=== PATIENT | female | born 1940 | race Caucasian/White ===

== ENCOUNTER 2017-05-12 12:13 | Observation (INO) | payer MEDICARE ==
[~2017-05-12] VITALS: Ht 160 cm; Wt 87.4 kg
[2017-05-12 12:59] LABS: BASOPHILS % (AUTO) 0.4 % (0.0-5.0); EOSINOPHILS % (AUTO) 1.7 % (0.0-8.0); HEMATOCRIT 33.5 % (36-48); LYMPHOCYTES % (AUTO) 17.6 % (21.0-51.0); MEAN CORPUSCULAR HEMOGLOBIN 32.5 pg (27.0-33.0); MEAN CORPUSCULAR HGB CONC 34.5 g/dL (32.0-36.0); MEAN CORPUSCULAR VOLUME 94.1 fL (79-99); MONOCYTES % (AUTO) 8.3 % (3.0-13.0); NUCLEATED RED BLOOD CELLS 0.1 % (0.0-0.19); PLATELET COUNT (AUTO) 211 K/uL (130-400); RED BLOOD CELL COUNT(AUTO) 3.56 MIL/uL (4.00-5.50); RED CELL DISTRIBUTION WIDTH 12.7 % (11.0-15.5)
[2017-05-12 13:26] LABS: CREATININE 1.3 mg/dL (0.5-1.5); POTASSIUM 3.8 mmol/L (3.5-5.1)
[2017-05-12 13:32] LABS: ALBUMIN 3.9 g/dL (3.5-5.0); BILIRUBIN,TOTAL 0.3 mg/dL (0.2-1.0)
[2017-05-12 15:05] LABS: APPEARANCE,URINE Clear (CLEAR); BILIRUBIN,URINE Negative (NEGATIVE); COLOR,URINE Yellow (YELLOW); GLUCOSE, URINE (UA) Negative (NEGATIVE); KETONES,URINE Negative (NEGATIVE); LEUKOCYTE ESTERASE ,URINE Moderate (NEGATIVE); NITRATE,URINE Negative (NEGATIVE); OCCULT BLOOD,URINE Negative (NEGATIVE); PROTEIN,URINE Negative (NEGATIVE); UROBILINOGEN,URINE 0.2 mg/dL (0.2-1.0)
[2017-05-12 16:10] LABS: BACTERIA,URINE Rare /HPF (None Seen); RBC,URINE 0-1 /HPF (0-1)
[2017-05-12 16:11] LABS: HYALINE CASTS, URINE 0-1 /LPF (0-1 /LPF); SQUAMOUS EPITHELIAL CELL,UR Rare /LPF (0-2)
[2017-05-12] MEDS ORDERED: ONDANSETRON HCL 4 MG/2 ML VIAL ONE (16:40)
[2017-05-12] MEDS ORDERED: MORPHINE SULFATE 2 MG/ML 1ML SYG ONE (16:41)
[2017-05-12 16:59] LABS: ABG BASE EXCESS -2.2 mmol/L (-2.0-3.0); ABG HCO3 22.1 mmol/L (21.0-28.0); ABG OXYGEN SATURATION 94.1 % (95.0-99.0); ABG PCO2 37 mmHg (32-45)
[2017-05-12] MEDS ORDERED: GADOBENATE DIMEGLUMINE 10 ML IV ONE (17:22)
[2017-05-12] MEDS ORDERED: SODIUM CHLORIDE 0.9% 1000ML 1,000 ML IV ONE (18:51)
[2017-05-12 21:30] VITALS: BP 156/74
[2017-05-12] MEDS ORDERED: LEVOFLOXACIN 500 MG/D5W 100 ML 100 ML ONE (23:06)
[2017-05-12 23:15] VITALS: BP 142/71
[2017-05-12] MEDS ORDERED: IPRATROPIUM/ALBUTEROL SULFATE 3 ML SOLUTION IH ONE (23:28)
[2017-05-12] MEDS ORDERED: SODIUM CHLORIDE 0.9% 1000ML 1,000 ML IV SCH (23:30)
[2017-05-12] MEDS ORDERED: LEVOFLOXACIN 500 MG/D5W 100 ML 100 ML IV SCH (23:30)
[2017-05-13] MEDS ORDERED: ZOLPIDEM TARTRATE 5 MG TAB PO PRN (00:15)
[2017-05-13] MEDS ORDERED: LIDOCAINE HCL-MPF 1% 2ML VIAL IVP PRN (02:15)
[2017-05-13] MEDS ORDERED: ONDANSETRON HCL 4 MG/2 ML VIAL IVP PRN (02:15)
[2017-05-13] MEDS ORDERED: CLONIDINE HCL 0.1 MG TABLET PO PRN (02:15)
[2017-05-13] MEDS ORDERED: POTASSIUM CHLORIDE 20 MEQ ERTAB PO PRN (02:15)
[2017-05-13] MEDS ORDERED: ACETAMINOPHEN 325 MG TAB PO PRN (02:15)
[2017-05-13] MEDS ORDERED: LACTULOSE 20 GM/30 ML UDCUP PO PRN (02:15)
[2017-05-13] MEDS ORDERED: POTASSIUM CHLORIDE 20MEQ/100ML 100 ML IV PRN (02:15)
[2017-05-13] MEDS ORDERED: POTASSIUM CHLORIDE 10% ELIXIR 20 MEQ/15 ML UDCUP PO PRN (02:15)
[2017-05-13] MEDS ORDERED: HYDRALAZINE HCL 20 MG/ML VIAL IV PRN (02:15)
[2017-05-13] MEDS ORDERED: MORPHINE SULFATE 2 MG/ML 1ML SYG IVP PRN ×2 (02:15)
[2017-05-13 03:40] VITALS: BP 143/70
[2017-05-13 05:07] LABS: HEMATOCRIT 30.3 % (36-48); MEAN CORPUSCULAR HEMOGLOBIN 32.2 pg (27.0-33.0); MEAN CORPUSCULAR HGB CONC 34.1 g/dL (32.0-36.0); MEAN CORPUSCULAR VOLUME 94.5 fL (79-99); PLATELET COUNT (AUTO) 188 K/uL (130-400); RED BLOOD CELL COUNT(AUTO) 3.21 MIL/uL (4.00-5.50); RED CELL DISTRIBUTION WIDTH 12.7 % (11.0-15.5)
[2017-05-13 05:29] LABS: CREATININE 0.9 mg/dL (0.5-1.5); POTASSIUM 3.8 mmol/L (3.5-5.1)
[2017-05-13 07:00] VITALS: BP 148/98
[2017-05-13] MEDS ORDERED: FAMOTIDINE 20MG TAB 20 MG TAB PO SCH (09:00)
[2017-05-13] MEDS ORDERED: TRAMADOL HCL 50 MG TABLET PO PRN (10:45)
[2017-05-13] MEDS ORDERED: IPRATROPIUM/ALBUTEROL SULFATE 3 ML SOLUTION IH SCH (12:00)
[2017-05-13 12:41] VITALS: BP 166/66
[2017-05-13] MEDS ORDERED: PARO40TA72 PO (12:48)
[2017-05-13] MEDS ORDERED: TEMA30CA PO (12:48)
[2017-05-13] MEDS ORDERED: OMEP40CA37 PO (12:48)
[2017-05-13] MEDS ORDERED: PREG150C PO (12:48)
[2017-05-13] MEDS ORDERED: MYCO500T5 PO (12:48)
[2017-05-13] MEDS ORDERED: FURO20TA4 PO (12:48)
[2017-05-13] MEDS ORDERED: OXCA300T PO (12:48)
[2017-05-13] MEDS ORDERED: CIPR-245 PO (13:16)
[2017-05-13 16:00] VITALS: BP 137/68
[2017-05-14] MEDS ORDERED: LEVOFLOXACIN 500 MG/D5W 100 ML 100 ML IV SCH (22:00)
== END 2017-05-13 18:10 | disposition home or self-care (01) ==
LOC: EDH 12:13 → EDHIP 17:20 → 3BH 21:11
PROVIDERS: ADMIT Internal Medicine; ATTEND Internal Medicine
DX: M48.56XA Collapsed vertebra, not elsewhere classified, lumbar region, initial encounter for fracture (principal); R09.02 Hypoxemia; G47.33 Obstructive sleep apnea (adult) (pediatric); M19.90 Unspecified osteoarthritis, unspecified site; I10 Essential (primary) hypertension; N39.0 Urinary tract infection, site not specified; R60.9 Edema, unspecified; Z87.891 Personal history of nicotine dependence
CPT/HCPCS: 36415 ×2; 36600; 71045; 72131; 72158; 78580; 80048; 80053; 81001; 82550; 82803; 83880; 84484; 85025; 85027; 85378; 93005; 93970; 94640 ×2; 94664; 96361; 96374; 96375; 97161; 99285; A9540; A9577; G0378 ×25; G8978; G8979; G8980; G8981; G8982; G8983; J0360; J1956; J7030; J2405

== ENCOUNTER 2017-05-17 14:51 | Emergency (ER) | payer MEDICARE ==
[~2017-05-17 14:51] MED LIST: CIPR-245 PO; FURO20TA4 PO; MYCO500T5 PO; OMEP40CA37 PO; OXCA300T PO; PARO40TA72 PO; PREG150C PO; TEMA30CA PO
[2017-05-17 17:47] LABS: BASOPHILS % (AUTO) 0.4 % (0.0-5.0); HEMATOCRIT 32.3 % (36-48); LYMPHOCYTES % (AUTO) 24.8 % (21.0-51.0); MEAN CORPUSCULAR HEMOGLOBIN 32.3 pg (27.0-33.0); MEAN CORPUSCULAR HGB CONC 34.2 g/dL (32.0-36.0); MEAN CORPUSCULAR VOLUME 94.5 fL (79-99); MONOCYTES % (AUTO) 9.2 % (3.0-13.0); NEUTROPHILS % (AUTO) 64.6 % (40.0-77.0); PLATELET COUNT (AUTO) 269 K/uL (130-400); RED BLOOD CELL COUNT(AUTO) 3.42 MIL/uL (4.00-5.50); RED CELL DISTRIBUTION WIDTH 12.5 % (11.0-15.5)
[2017-05-17 18:00] LABS: PARTIAL THROMBOPLASTIN TIME 27.5 SEC (26.3-35.5); PROTHROMBIN TIME 10.5 SEC (9.6-11.6)
[2017-05-17 18:08] LABS: ALBUMIN 3.6 g/dL (3.5-5.0); BILIRUBIN,TOTAL 0.2 mg/dL (0.2-1.0); TOTAL PROTEIN, SERUM 7.7 g/dL (6.0-8.3)
[2017-05-17] MEDS ORDERED: GADOBENATE DIMEGLUMINE 20 ML IV ONE (20:51)
[2017-05-18] MEDS ORDERED: ASPIRIN 325 MG TABLET ONE (01:25)
== END 2017-05-18 02:40 | disposition short-term general hospital (02) ==
LOC: EDH 14:51
DX: I63.8 Other cerebral infarction (principal); I10 Essential (primary) hypertension; M19.90 Unspecified osteoarthritis, unspecified site; Z88.0 Allergy status to penicillin
CPT/HCPCS: 36415; 70450; 70544; 70549; 70551; 80053; 82550; 84484; 85025; 85610; 85730; 93005; 99285; A9577

== ENCOUNTER 2019-08-23 10:39 | Inpatient (IN) | payer MEDICARE ==
[~2019-08-23] VITALS: Ht 157.5 cm; Wt 76.9 kg
[2019-08-23] VITALS (26 sets, daily range): BP systolic 99–173; BP diastolic 54–101
[~2019-08-23 10:39] MED LIST changes: +OMEP40CA13 PO; -OMEP40CA37 PO; -OXCA300T PO; +OXCA300T28 PO
[2019-08-23] MEDS ORDERED: ONDANSETRON HCL 4 MG/2 ML VIAL ONE (11:11)
[2019-08-23] MEDS ORDERED: MORPHINE SULFATE 4 MG/1ML SYG ONE ×2 (11:12→13:46)
[2019-08-23 11:21] LABS: CREATININE 1.2 mg/dL (0.5-1.5)
[2019-08-23 11:23] LABS: BASOPHILS % (AUTO) 0.1 % (0.0-5.0); EOSINOPHILS % (AUTO) 0.1 % (0.0-8.0); HEMATOCRIT 31.7 % (36-48); LYMPHOCYTES % (AUTO) 8.6 % (21.0-51.0); MEAN CORPUSCULAR HEMOGLOBIN 32.6 pg (27.0-33.0); MEAN CORPUSCULAR HGB CONC 34.1 g/dL (32.0-36.0); MEAN CORPUSCULAR VOLUME 95.8 fL (79-99); MONOCYTES % (AUTO) 7.9 % (3.0-13.0); NEUTROPHILS % (AUTO) 82.9 % (40.0-77.0); PLATELET COUNT (AUTO) 242 K/uL (130-400); RED BLOOD CELL COUNT(AUTO) 3.31 MIL/uL (4.00-5.50); WHITE BLOOD COUNT (AUTO) 7.8 K/uL (4.8-10.8)
[2019-08-23 11:25] LABS: ALBUMIN 3.6 g/dL (3.5-5.0); BILIRUBIN,DIRECT 0.1 mg/dL (0.0-0.3); BILIRUBIN,TOTAL 0.3 mg/dL (0.2-1.0); TOTAL PROTEIN, SERUM 7.8 g/dL (6.0-8.3)
[2019-08-23 11:26] LABS: APPEARANCE,URINE Clear (CLEAR); BILIRUBIN,URINE Negative (NEGATIVE); COLOR,URINE Yellow (YELLOW); GLUCOSE, URINE (UA) Negative (NEGATIVE); KETONES,URINE Negative (NEGATIVE); LEUKOCYTE ESTERASE ,URINE Negative (NEGATIVE); NITRATE,URINE Positive (NEGATIVE); OCCULT BLOOD,URINE Negative (NEGATIVE); PROTEIN,URINE Negative (NEGATIVE); UROBILINOGEN,URINE 0.2 mg/dL (0.2-1.0)
[2019-08-23 11:33] LABS: PARTIAL THROMBOPLASTIN TIME 29.9 SEC (26.3-35.5); PROTHROMBIN TIME 10.8 SEC (9.6-11.6)
[2019-08-23 11:41] LABS: BACTERIA,URINE Many /HPF (None Seen); RBC,URINE 0-1 /HPF (0-1); SQUAMOUS EPITHELIAL CELL,UR Rare /HPF (0-2); WBC,URINE 0-1 /HPF (0-1)
[2019-08-23] MEDS ORDERED: PROPOFOL 10 MG/ML 20ML VIAL IV ONE ×2 (11:51→17:36)
[2019-08-23] MEDS ORDERED: SUCCINYLCHOLINE 200MG/10ML SYR ONE (17:36)
[2019-08-23] MEDS ORDERED: LIDOCAINE PF 2% 5ML ABBOJECT ONE (17:36)
[2019-08-23] MEDS ORDERED: ROCURONIUM 10MG/1ML SYR 10 MG/ML ML ONE (17:36)
[2019-08-23] MEDS ORDERED: KETAMINE 50MG/ML SYRINGE 50 MG/ML DISP.SYRIN IV ONE (17:38)
[2019-08-23] MEDS ORDERED: SUCCINYLCHOLINE CHLORIDE 20 MG/ML 10 ML VIAL ONE (17:38)
[2019-08-23] MEDS ORDERED: FENTANYL CITRATE PF 50 MCG/1 ML 2ML VIAL ONE (17:45)
[2019-08-23] MEDS ORDERED: ESMOLOL HCL 10 MG/ML 10 ML VIAL ONE ×2 (17:54→18:38)
[2019-08-23] MEDS ORDERED: ACETAMINOPHEN 325 MG TAB PO PRN (18:15)
[2019-08-23] MEDS ORDERED: NITROGLYCERIN 0.4 MG SL TAB SL PRN (18:15)
[2019-08-23] MEDS ORDERED: HYDROCODONE/ACETAMINOPHEN 5/325 MG TAB PO PRN ×2 (18:15→18:30)
[2019-08-23] MEDS ORDERED: SUGAMMADEX SODIUM 200 MG/2 ML VIAL IV ONE (18:17)
[2019-08-23] MEDS ORDERED: POTASSIUM CHLORIDE 20MEQ/100ML 100 ML IV PRN (18:30)
[2019-08-23] MEDS ORDERED: DIPHENHYDRAMINE HCL 25 MG CAPSULE PO PRN (18:30)
--- NOTE | 2019-08-23 20:00 | NUR ---
TRANSFER PT TRANSFERRED FROM PACU INTO ROOM 318. REPORT OBTAINED FROM TISHA CRUZ. PT AWAKE, ALERT AND VERBALLY RESPONSIVE, NO C/O PAIN OR DISCOMFORT AT THIS TIME.OXYGEN VIA NC AT 2L/MIN, NO C/O SHORTNESS OF BREATH. CASTELLANO CATHETER OBSERVED, STAT LOCK IN PLACE, DRAINING PALE YELLOW URINE. ABDUCTOR PILLOW IN PLACE, AND SCD'S CONNECTED TO BLE. PT ORIENTED TO ROOM, CALL YORK WITHIN REACH, BED IN LOWEST POSITION. Addendum: 08/23/19 at 0172 by CARITO PRAKASH RN Amended: Links added.
[2019-08-23] MEDS ORDERED: FAMOTIDINE/PF 20 MG/2 ML VIAL IV SCH (21:00)
[2019-08-23] MEDS: FAMOTIDINE 20MG TAB 20 MG TAB PO SCH (22:33)
[2019-08-23] MEDS: SODIUM CHLORIDE 0.9% 1000ML 1,000 ML IV SCH (22:36)
[2019-08-23] MEDS: HYDROCODONE/ACETAMINOPHEN 5/325 MG TAB PO PRN (22:36)
[2019-08-24] VITALS (9 sets, daily range): BP systolic 95–133; BP diastolic 55–72
[2019-08-24] MEDS: SODIUM CHLORIDE 0.9% 1000ML 1,000 ML IV SCH ×2 (04:26→20:08)
[2019-08-24 04:31] LABS: EOSINOPHILS % (AUTO) 0.2 % (0.0-8.0); HEMATOCRIT 31.8 % (36-48); LYMPHOCYTES % (AUTO) 17.7 % (21.0-51.0); MEAN CORPUSCULAR HEMOGLOBIN 32.2 pg (27.0-33.0); MEAN CORPUSCULAR HGB CONC 31.8 g/dL (32.0-36.0); MEAN CORPUSCULAR VOLUME 101.3 fL (79-99); MONOCYTES % (AUTO) 10.5 % (3.0-13.0); NEUTROPHILS % (AUTO) 71.3 % (40.0-77.0); PLATELET COUNT (AUTO) 213 K/uL (130-400); RED BLOOD CELL COUNT(AUTO) 3.14 MIL/uL (4.00-5.50); RED CELL DISTRIBUTION WIDTH 12.6 % (11.0-15.5); WHITE BLOOD COUNT (AUTO) 5.9 K/uL (4.8-10.8)
[2019-08-24 05:04] LABS: ALBUMIN 3.2 g/dL (3.5-5.0); BILIRUBIN,TOTAL 0.4 mg/dL (0.2-1.0); CREATININE 1.1 mg/dL (0.5-1.5); POTASSIUM 4.4 mmol/L (3.5-5.1); TOTAL PROTEIN, SERUM 7.2 g/dL (6.0-8.3)
[2019-08-24] MEDS ORDERED: LISI-613 PO (05:28)
[2019-08-24] MEDS ORDERED: ATOR40TA69 PO (05:28)
[2019-08-24] MEDS ORDERED: CLOP75TA32 PO (05:28)
[2019-08-24] MEDS ORDERED: ARMO250T6 PO (05:28)
[2019-08-24] MEDS ORDERED: BIFI4CAP PO (05:28)
[2019-08-24] MEDS ORDERED: GABA600T10 PO ×2 (05:28)
[2019-08-24] MEDS ORDERED: CHOL500051 PO (05:28)
[2019-08-24] MEDS ORDERED: MULT-1192 PO (05:28)
[2019-08-24] MEDS ORDERED: VITA-328 PO (05:28)
[2019-08-24] MEDS: POLYETHYLENE GLYCOL 3350 17 GM POWD.PACK PO SCH (08:03)
[2019-08-24] MEDS: FAMOTIDINE 20MG TAB 20 MG TAB PO SCH (08:03)
[2019-08-24] MEDS: HYDROCODONE/ACETAMINOPHEN 5/325 MG TAB PO PRN ×3 (08:07→23:25)
--- NOTE | 2019-08-24 08:21 | NUR ---
DR ARCHER HERE TO SEE PATIENT; HE LOOKED AT HER RIGHT ANKLE, PT STATES SHE HAD PAIN TO IT PRIOR TO HER FALL, HE ASKED IF SHE HAS HAD GOUT BEFORE AND SHE STATED YES. I ALSO ASKED HIM ABOUT RESUMING HOME MEDICATIONS AND REMOVING CASTELLANO CATHETOR AND HE STATED IT WAS OK WITH HIM TO RESUME HOME MEDICATIONS INCLUDING PLAVIX AND TO REMOVED CASTELLANO CATHETOR BUT TO CHECK WITH HOSPITALIST AND HAVE THEM OK AND ORDER. HE STATES HE WANTS HER UP TO CHAIR TODAY AND WORKING WITH PHYSICAL THERAPY; PT'S DAUGHTER WAS ON SPEAKER PHONE IN ROOM DURING HIS ROUNDING WAS ABLE TO ASK DR ARCHER QUESTIONS WHICH HE ADDRESSED. PT STATED UNDERSTANDING OF ALL INSTRUCTIONS AND CARE PLAN
[2019-08-24] MEDS ORDERED: ENOXAPARIN SODIUM 30 MG/0.3 ML SQ SCH (09:00)
[2019-08-24] MEDS ORDERED: ENOXAPARIN SODIUM 40 MG/0.4 ML SYRINGE SQ SCH (09:00)
--- NOTE | 2019-08-24 14:01 | NUR ---
I HAVE PAGED DR ARCHER TO LET HIM KNOW THAT PT IS NOT ACCEPTING HOME HEALTH THAT HE ORDERED AND SHE WANTS SOMETHING FOR HER GOUT FLAIR UP PENDING HIS CALL BACK
--- NOTE | 2019-08-24 15:01 | NUR ---
DCP CM met with pt discussed dc plans. Pt is independent prior to admission, lives at home alone, friend Leonila Maradiaga lives close by, pt is a winter tx from [place]. Pt has her own standard walker no wheels. Denies any other equipments/services. Feels safe to go back home, still drives, friend Leonila able assist with transportation as necessary. Discussed MD recommendations for home w/HH. At this time pt declined, verbalized she will arrange to go back home to [place] once discharge, her daughter Patricia Galeano is going to assist with arranging flight back home as she will not be able to drive back. Pt requested to call daughter Patricia first because she is a nurse and will have a better feedback. Spoke to daughter Patricia in pt's room discussed poc. Verified daughter is going to assist pt for flight back home once discharged and will be taking care of pt once she's back home. In the mean time sharee Keen [place] temporarily assist with [place] plan to home once stable. Rocio CRENSHAW to update Dr Phelps of pt's decision. DC plan to home once stable. CM to cont to follow up. Addendum: 08/24/19 at 1507 by ELMIRA YEPEZ LVN CM Amended: Links added.
[2019-08-24] MEDS ORDERED: LEVOFLOXACIN 500 MG/D5W 100 ML 100 ML IV SCH (15:45)
--- NOTE | 2019-08-24 16:30 | NUR ---
CM NOTE/FLIGHT CLEARANCE CALLED DR. ARCHER REGARDING DC PLAN. PER PATIENT, WANTS TO TAKE FLIGHT BACK TO [place] BUT WONDERING IF CAN GET ON AIRPLANE. PER DR. ARCHER, HAS BEEN MEDICALLY CLEARED FOR FLIGHT. MD MADE AWARE OF PATIENT DECLINING HOME HEALTH AT THE MOMENT D/T AFRAID OF RECENT COVID 19. PER MD, CAN RETURN TO [place] AND FOLLOW UP WITH MD THERE FOR HH. PATIENT MADE AWARE OF FLIGHT CLEARANCE. PER PATIENT, NOT DECLINING HH AT THE MOMENT BUT RATHER WANTS TO THINK ABOUT IT AND CORRELATE WITH FAMILY IF FLIGHT WILL BE SOON. IF NOT SOON, WILL ACCEPT HOME HEALTH. WILL FOLLOW UP WITH PATIENT TOMORROW FOR FINAL DC PLAN. FROYLAN GILES AND MADE AWARE OF CONVERSATIONS BETWEEN PATIENT AND I AND DR. ARCHER.
[2019-08-24] MEDS: LACTULOSE 20 GM/30 ML UDCUP PO PRN (17:50)
[2019-08-24] MEDS: PREDNISONE 10 MG TABLET PO SCH (17:50)
--- NOTE | 2019-08-24 18:10 | NUR ---
CASTELLANO CATHETOR REMOVED PER DR ALVES VERBAL ORDER; INCONTINENT BRIEF PLACED ON PT PER HER REQUEST; PT UNDERSTAND'S SHES DUE TO VOID SO SHE IS DRINKING MORE FLUID TO HELD HER URINATE; SHE IS ALSO AWARE SHE WAS FOUND TO HAVE A UTI AND THAT WE ARE GIVING HER LEVAQUIN IV ABX.
[2019-08-24] MEDS ORDERED: ATORVASTATIN CALCIUM 40 MG TABLET PO SCH (21:00)
[2019-08-24] MEDS ORDERED: GABAPENTIN 300 MG CAPSULE PO SCH (21:00)
[2019-08-25 00:06] VITALS: BP 113/75
[2019-08-25 04:00] VITALS: BP 141/86
[2019-08-25] MEDS: HYDROCODONE/ACETAMINOPHEN 5/325 MG TAB PO PRN (04:31)
[2019-08-25 04:34] LABS: LYMPHOCYTES % (AUTO) 8.7 % (21.0-51.0); MEAN CORPUSCULAR HGB CONC 31.8 g/dL (32.0-36.0); MEAN CORPUSCULAR VOLUME 100.7 fL (79-99); NEUTROPHILS % (AUTO) 86.9 % (40.0-77.0); PLATELET COUNT (AUTO) 189 K/uL (130-400); RED BLOOD CELL COUNT(AUTO) 2.78 MIL/uL (4.00-5.50); RED CELL DISTRIBUTION WIDTH 12.5 % (11.0-15.5); WHITE BLOOD COUNT (AUTO) 5.3 K/uL (4.8-10.8)
[2019-08-25 04:51] LABS: ALBUMIN 2.8 g/dL (3.5-5.0); BILIRUBIN,TOTAL 0.4 mg/dL (0.2-1.0); CREATININE 0.9 mg/dL (0.5-1.5); POTASSIUM 5.1 mmol/L (3.5-5.1); TOTAL PROTEIN, SERUM 7.1 g/dL (6.0-8.3)
[2019-08-25] MEDS: LACTULOSE 20 GM/30 ML UDCUP PO PRN (06:41)
[2019-08-25 07:30] VITALS: BP 119/67
[2019-08-25] MEDS ORDERED: PANTOPRAZOLE SODIUM 40 MG TABLET.DR PO SCH (07:30)
[2019-08-25] MEDS: POLYETHYLENE GLYCOL 3350 17 GM POWD.PACK PO SCH (08:50)
[2019-08-25] MEDS: PREDNISONE 10 MG TABLET PO SCH (08:51)
[2019-08-25] MEDS ORDERED: LISINOPRIL 20 MG TABLET PO SCH (09:00)
[2019-08-25] MEDS ORDERED: MULTIVITAMIN TABLET PO SCH (09:00)
[2019-08-25] MEDS ORDERED: ARMODAFINIL 250 MG PO SCH (09:00)
[2019-08-25] MEDS ORDERED: FAMOTIDINE 20MG TAB 20 MG TAB PO SCH (09:00)
[2019-08-25] MEDS ORDERED: GABAPENTIN 300 MG CAPSULE PO SCH (09:00)
[2019-08-25] MEDS ORDERED: VITAMIN B COMPLEX 1 CAPSULE PO SCH (09:00)
[2019-08-25] MEDS ORDERED: BIFIDOBACTERIUM INFANTIS 4 MG PO SCH (09:00)
[2019-08-25] MEDS ORDERED: CLOPIDOGREL BISULFATE 75 MG TAB PO SCH (09:00)
[2019-08-25] MEDS ORDERED: ENOXAPARIN SODIUM 30 MG/0.3 ML SQ SCH (09:00)
[2019-08-25] MEDS ORDERED: CHOLECALCIFEROL 125 MCG PO SCH (09:00)
[2019-08-25] MEDS ORDERED: LEVO500T89 PO (12:07)
[2019-08-25] MEDS ORDERED: PRED10TA3 PO (12:07)
[2019-08-25] MEDS ORDERED: ACET1TAB12 PO (12:07)
[2019-08-25 12:16] VITALS: BP 117/63
[2019-08-26] MEDS ORDERED: BISACODYL 10 MG SUPP.RECT RC PRN (18:30)
== END 2019-08-25 14:45 | disposition home or self-care (01) | DRG 561 ==
LOC: EDH 10:39 → EDHIP 16:51 → 3CH 20:20
PROVIDERS: ADMIT Orthopaedic Surgery; ATTEND Hospitalist
PROC: BW1C1ZZ Fluoroscopy of Lower Extremity using Low Osmolar Contrast (ICD-10-PCS; 2019-08-23)
PROC: 0SWBXJZ Revision of Synthetic Substitute in Left Hip Joint, External Approach (ICD-10-PCS; principal; 2019-08-23 17:38)
DX: T84.021A Dislocation of internal left hip prosthesis, initial encounter (principal); I12.9 Hypertensive chronic kidney disease with stage 1 through stage 4 chronic kidney disease, or unspecified chronic kidney disease; M10.9 Gout, unspecified; N18.9 Chronic kidney disease, unspecified; F32.9 Major depressive disorder, single episode, unspecified; M19.90 Unspecified osteoarthritis, unspecified site; J44.9 Chronic obstructive pulmonary disease, unspecified; K21.9 Gastro-esophageal reflux disease without esophagitis; Y83.1 Surgical operation with implant of artificial internal device as the cause of abnormal reaction of the patient, or of later complication, without mention of misadventure at the time of the procedure; Z79.02 Long term (current) use of antithrombotics/antiplatelets; Z88.0 Allergy status to penicillin; Z86.73 Personal history of transient ischemic attack (TIA), and cerebral infarction without residual deficits; W18.30XA Fall on same level, unspecified, initial encounter; Y93.89 Activity, other specified; Y92.098 Other place in other non-institutional residence as the place of occurrence of the external cause; Y99.8 Other external cause status
CPT/HCPCS: 36415; 70450; 71045; 72125; 72170; 72192; 73502; 73610; 80048; 80053; 80076; 81001; 82550; 84484; 85025; 85610; 85730; 87077; 87088; 87186; 93005; 94660; 97039; A4606; G0378; J0330; J1650; J1956; J2001; J2270; J2405; J2704; J3010; J3490; J7512

== ENCOUNTER → 2022-06-29 | Outpatient (CLI) | payer MEDICARE ==
[~2022-06-29] MED LIST changes: +ACET1TAB12 PO; +ATOR40TA69 PO; +BIFI4CAP PO; +CHOL500051 PO; -CIPR-245 PO; +CLOP75TA32 PO; -FURO20TA4 PO; +GABA600T10 PO; +LEVO-70 PO; +LISI20TA24 PO; +MULT-1192 PO; -MYCO500T5 PO; -OMEP40CA13 PO; +OMEP40CA21 PO; -OXCA300T28 PO; -PARO40TA72 PO; +PRED10TA3 PO; -PREG150C PO; -TEMA30CA PO; +VITA-328 PO
[2022-06-29 16:03] LABS: BASOPHILS % (AUTO) 0.2 % (0.0-5.0); HEMATOCRIT 35.2 % (36-48); LYMPHOCYTES % (AUTO) 31.4 % (21.0-51.0); MEAN CORPUSCULAR HEMOGLOBIN 32.4 pg (27.0-33.0); MEAN CORPUSCULAR HGB CONC 32.1 g/dL (32.0-36.0); MEAN CORPUSCULAR VOLUME 100.9 fL (79-99); MONOCYTES % (AUTO) 10.6 % (3.0-13.0); NEUTROPHILS % (AUTO) 55.6 % (40.0-77.0); PLATELET COUNT (AUTO) 200 K/uL (130-400); RED BLOOD CELL COUNT(AUTO) 3.49 MIL/uL (4.00-5.50); RED CELL DISTRIBUTION WIDTH 15.3 % (11.0-15.5); WHITE BLOOD COUNT (AUTO) 4.1 K/uL (4.8-10.8)
[2022-06-29 16:21] LABS: ALBUMIN 3.9 g/dL (3.5-5.0); BILIRUBIN,DIRECT 0.1 mg/dL (0.0-0.3); CREATININE 1.4 mg/dL (0.5-1.5); TOTAL PROTEIN, SERUM 8.1 g/dL (6.0-8.3)
[2022-06-29 16:33] LABS: B-TYPE NATRIURETIC PEPTIDE 96 pg/mL (0-100)
== END | disposition home or self-care (01) ==
LOC: LAB 14:52
PROVIDERS: ATTEND Internal Medicine Cardiovascular Disease
DX: I10 Essential (primary) hypertension (principal); R06.02 Shortness of breath; I25.9 Chronic ischemic heart disease, unspecified; E78.2 Mixed hyperlipidemia
CPT/HCPCS: 36415; 80048; 80061; 80076; 83880; 85025